=== PATIENT | male | born 1955 | race Caucasian/White ===

== ENCOUNTER 2018-11-13 20:20 | Emergency (ER) | payer OTHER ==
[~2018-11-13] VITALS: Ht 170.2 cm; Wt 88.5 kg
[2018-11-13 21:13] LABS: ABSOLUTE NEUTROPHILS 11.1 thou/uL (1.4-8.2); BASOPHILS 0.6 % (0.0-2.0); EOSINOPHILS 0.2 % (0.0-3.0); HEMATOCRIT 49.3 % (42.0-52.0); HEMOGLOBIN 17.2 gm/dL (14.0-18.0); LYMPHOCYTES 19.7 % (24.0-44.0); MCH 30.6 pg (26.0-34.0); MCHC 34.8 g/dL (28.0-37.0); MONOCYTES 7.5 % (1.0-8.0); PLATELET COUNT 424 thou/uL (150-400); RDW 12.5 % (10.5-14.5); WBC 15.4 thou/uL (4.0-11.0)
[2018-11-13 21:28] LABS: CALCIUM 9.9 mg/dL (8.5-10.1); CREATININE 1.1 mg/dL (0.7-1.3); POTASSIUM 3.7 mmol/L (3.5-5.1)
[2018-11-13 21:31] LABS: ALBUMIN 4.6 g/dL (3.4-5.0); TOTAL BILIRUBIN 0.8 mg/dL (<0.1-1.0); TOTAL PROTEIN 9.6 g/dL (6.4-8.2)
[2018-11-13] MEDS ORDERED: METHYLPHENIDATE20 M1 PO (21:32)
[2018-11-13] MEDS ORDERED: CHILDREN'S ASPI81 M1 PO (21:32)
[2018-11-13] MEDS ORDERED: WELLBUTRIN 100100 MG PO (21:33)
[2018-11-13] MEDS ORDERED: XANAX1 MG PO (21:33)
[2018-11-13] MEDS ORDERED: CELEXA40 MG PO (21:34)
[2018-11-13] MEDS ORDERED: COZAAR 25 MG TA25 M1 PO (21:34)
[2018-11-13] MEDS ORDERED: HYDROCHLOROTHIA25 M2 PO (21:35)
[2018-11-13] MEDS ORDERED: ZOCOR20 MG PO (21:35)
[2018-11-13] MEDS ORDERED: NORVASC2.5 MG PO (21:36)
[2018-11-13] MEDS ORDERED: OMEPRAZOLE 20 M20 M1 PO (21:36)
[2018-11-13] MEDS ORDERED: GLUMETZA1000 PO (21:36)
[2018-11-13] MEDS ORDERED: TOVIAZ8 MG PO (21:37)
[2018-11-13] MEDS ORDERED: AMBIEN 5 MG TABL5 M1 PO (21:37)
[2018-11-13] MEDS ORDERED: NIZORAL A-D200 ML TOP (21:38)
[2018-11-13] MEDS ORDERED: TRIAMCINOLONE A80 G2 TOP (21:38)
[2018-11-13] MEDS ORDERED: TRANSDERM-SCOP1 EACH (21:39)
[2018-11-13] MEDS ORDERED: FINASTERIDE5 MG PO (21:39)
[2018-11-13] MEDS ORDERED: AMARYL2 MG PO (21:40)
[2018-11-13] MEDS ORDERED: AMOXICILLIN 50500 MG (21:40)
[2018-11-13 22:49] LABS: URINE BILIRUBIN NEGATIVE (Negative); URINE BLOOD NEGATIVE (Negative); URINE CLARITY CLEAR; URINE COLOR YELLOW; URINE GLUCOSE-RANDOM* NEGATIVE (Negative); URINE KETONES 1+ (Negative); URINE LEUKOCYTES-REFLEX NEGATIVE (Negative); URINE NITRITE-REFLEX NEGATIVE (Negative); URINE PROTEIN (DIPSTICK) TRACE (Negative); URINE SPECIFIC GRAVITY >= 1.030 (1.005-1.035); URINE UROBILINOGEN 0.2 E.U./dl (0.2-1.0)
[2018-11-13] MEDS ORDERED: ZOFRAN ODT4 MG DISSOLVE (23:44)
[2018-11-13] MEDS ORDERED: PEPCID20 MG PO (23:44)
[2018-11-14 01:55] VITALS: BP 137/79
--- NOTE | 2018-11-14 02:53 | EKG ---
[address] [place] [address] ELECTROCARDIOGRAM REPORT Name: VALERIE SINCLAIR Room #: GIOVANNY Zelaya#: [id number] ������������������ Admission: 11/13/18 ������������������ Attend Phys: Discharge: 11/14/18 ������������������ Date of : 53 Report #: [id number] ����������������������������������������������������������������� [id number] THIS REPORT FOR: //name// [facility] ED Test Date: 2018-11-13 Test Time: 21:04:13 Pat Name: VALERIE SINCLAIR Department: Room: Gender: Sas Statistical Programmer: [place] : 1955 Requested By: Ericka Cox Order Number: [id number] MD: Mauricio Alex Measurements Intervals [place] Rate: 69 P: 65 NH: 208 QRS: 93 QRSD: 161 T: 23 QT: 474 QTc: 508 Interpretive Statements Sinus rhythm left atrial enlargement RBBB and LPFB Nonspecific ST-T wave changes No previous ECG available for comparison Electronically Signed On 11-14-2018 2:53:01 SAND [employer] by Mauricio Alex [email or web address] ��������������������������������������������� <ELECTRONICALLY SIGNED> ���������������������������������������� By: Mauricio Alex MD ��������������������������������������������� 11/14/18 0253 2104 03 Mauricio Alex MD /JENIFFER
== END 2018-11-14 01:50 | disposition home or self-care (01) ==
LOC: ER 20:20
PROVIDERS: Physician Assistant
DX: R11.2 Nausea with vomiting, unspecified (principal); R10.33 Periumbilical pain; R10.84 Generalized abdominal pain; F41.9 Anxiety disorder, unspecified; E11.9 Type 2 diabetes mellitus without complications; I10 Essential (primary) hypertension; E78.00 Pure hypercholesterolemia, unspecified; E78.5 Hyperlipidemia, unspecified; Z88.8 Allergy status to other drugs, medicaments and biological substances; Z88.0 Allergy status to penicillin; Z96.652 Presence of left artificial knee joint

== ENCOUNTER 2020-11-13 11:19 | Emergency (ER) | payer OTHER ==
[~2020-11-13] VITALS: Ht 170.2 cm; Wt 86.2 kg
--- NOTE | ~2020-11-13 | HC ---
[facility] [place] [address] CONSULTATION Name: VALERIE SINCLAIR Room #: DEP Nathalie#: [id number] Admission: 11/13/20 Attend Phys: Discharge: 11/13/20 Date of : 53 Report #: [id number] THIS REPORT FOR: cc: FAM - Family physician unknown FAM - Family physician unknown Anthony Hu MD [facility] ~ CARDIOLOGY ER CONSULT HISTORY OF PRESENT ILLNESS: A 65-year-old male who was sent over by Dr. Jina Rodriguez for evaluation of tachycardia. He apparently has been somewhat of a debilitated retired 65-year-old male. He does not have specific cardiac history and apparently had a hospitalization at [facility] for 5-6 days within the last month, but we were able to get no records from this hospitalization. He is not clear and a very poor historian on what was done or not done. He was sent over there for blood sugar in the 500-600 range. Came out on medications of metformin 1000 twice a day, methylphenidate 20, Xanax 1 mg 3 times a day, losartan 25 a day, Celexa, and hydrochlorothiazide 25 mg. He states he is on a statin, but I do not see this listed. He had a chest x-ray here, which was unremarkable, and laboratory work, which was unremarkable except for elevated sugar of 427. His tachycardia has resolved with normal saline fluid boluses. Troponin is negative. EKG has some nonspecific changes and a complete right bundle-branch block. On the medications, he is on Protonix, Ambien at night, ketaconazole, finasteride 5, glimepiride 2, Lexapro in place of the Celexa and amlodipine 2.5 mg. Laboratory work, BNP is not elevated either. Creatinine is normal. H and H is 16 and 49. Chest x-ray is normal. He has a long history of diabetes. He lives with his significant other. No syncope or presyncope. He is generally weak and just generally does not get out of bed he states, it is not clear as to why. PAST MEDICAL HISTORY: Positive for the diabetes type 2, hypertension, hypercholesterolemia, back surgeries, deepthi placement, knee surgeries, DJD, anxiety, reflux, BPH. SOCIAL HISTORY: Lives with the significant other. No children. I believe it is alternative lifestyle. No prior alcohol, none currently. No tobacco ever. FAMILY HISTORY: Negative for premature coronary artery disease. REVIEW OF SYSTEMS: Essentially negative except for stated above. ALLERGIES: GABAPENTIN, LYRICA AND PENICILLIN. PHYSICAL EXAMINATION: VITAL SIGNS: Initially was tachycardic 100-110; after 2 liters of fluid, his pulse is 75, blood pressure is 126/80. HEENT: Eyes reveal xanthelasmas. Pharynx is clear. [facility] [address] [place] [address] CONSULTATION Name: VALERIE SINCLAIR Room #: DEP ANIL Zelaya#: [id number] Admission: 11/13/20 Attend Phys: Discharge: 11/13/20 Date of : 53 Report #: [id number] NECK: Shows preserved upstrokes without JVD or bruits. LUNGS: Clear. HEART: Regular rate and rhythm, S1, S2. ABDOMEN: Soft. No HSM. No rebound or guarding. EXTREMITIES: Reveal trace of edema. Distal pulses diminished, but intact. NEUROLOGIC: Nonfocal. SKIN: Warm and dry without xanthoma or ulcer. MUSCULOSKELETAL: No gross joint deformity. I did not ambulate him. It looks like prior surgical scars on the back. ASSESSMENT: 1. Tachycardia, probably volume related due to marked elevated blood sugars. 2. Diabetes type 2 with poorly controlled blood sugar. No evidence of DKA. 3. Hypertension. 4. Hypercholesterolemia. 5. Degenerative joint disease with prior back surgery. 6. Anxiety, depression. RECOMMENDATIONS AND PLAN: I agree with the ER physician in addition IV fluids has resolved. We will talk with Dr. Rodriguez about trying to get better control on his blood sugar. I talked to him about dietary restrictions. He is not in any florid heart failure. His tachycardia has resolved with the fluids. His laboratory work is unremarkable. Echo Doppler was performed here and that is essentially normal. I have asked him for followup in our office and we will try to arrange outpatient stress testing. He is having no complaints of anginal symptoms, but certainly high risk for coronary artery disease. Coronary calcium score would also be of benefit. We will discuss the above with Dr. Rodriguez. The patient does need to take some responsibility for his medical condition here, did discuss that with him. He seems to be responsive and states he will make his appointment in 2 weeks. Thank you for asking me to assist in the care of this patient. By: [id number] 50 Anthony Hu MD, FACC /nt
[~2020-11-13 11:19] MED LIST: AMARYL2 MG PO; AMBIEN 5 MG TABL5 M1 PO; AMOXICILLIN 50500 MG; CELEXA40 MG PO; CHILDREN'S ASPI81 M1 PO; COZAAR 25 MG TA25 M1 PO; FINASTERIDE5 MG PO; GLUMETZA1000 PO; HYDROCHLOROTHIA25 M2 PO; METHYLPHENIDATE20 M1 PO; NIZORAL A-D200 ML TOP; NORVASC2.5 MG PO; OMEPRAZOLE 20 M20 M1 PO; PEPCID20 MG PO; TOVIAZ8 MG PO; TRANSDERM-SCOP1 EACH; TRIAMCINOLONE A80 G2 TOP; WELLBUTRIN 100100 MG PO; XANAX1 MG PO; ZOCOR20 MG PO; ZOFRAN ODT4 MG DISSOLVE
[2020-11-13 11:59] LABS: ABSOLUTE NEUTROPHILS 5.4 thou/uL (1.4-8.2); BASOPHILS 0.9 % (0.0-2.0); EOSINOPHILS 2.6 % (0.0-3.0); HEMATOCRIT 49.2 % (42.0-52.0); HEMOGLOBIN 16.4 gm/dL (14.0-18.0); LYMPHOCYTES 36.2 % (24.0-44.0); MCH 30.3 pg (26.0-34.0); MCHC 33.4 g/dL (28.0-37.0); MCV 90.8 fL (80.0-100.0); MONOCYTES 7.4 % (1.0-8.0); PLATELET COUNT 335 thou/uL (150-400); POLYS 52.9 % (36.0-66.0); RBC 5.42 mil/uL (4.50-6.00); RDW 12.5 % (10.5-14.5); WBC 10.2 thou/uL (4.0-11.0)
[2020-11-13] MEDS ORDERED: TAMSULOSIN HCL0.4 MG PO (12:00)
[2020-11-13 12:10] LABS: ANION GAP 11 mmol/L (7-16); BUN 9 mg/dL (7-18); CALCIUM 9.5 mg/dL (8.5-10.1); CHLORIDE 101 mmol/L (98-107); CO2 22 mmol/L (21-32); CREATININE 1.2 mg/dL (0.7-1.3); GLUCOSE 427 mg/dL (74-106); POTASSIUM 3.8 mmol/L (3.5-5.1); SODIUM 134 mmol/L (136-145)
[2020-11-13 12:20] LABS: ALBUMIN 3.5 g/dL (3.4-5.0); SGOT 27 U/L (15-37); SGPT 35 U/L (30-65); TOTAL BILIRUBIN 0.6 mg/dL (0.2-1.0); TOTAL PROTEIN 7.3 g/dL (6.4-8.2); TROPONIN-I <0.06 ng/mL (<0.06)
[2020-11-13 12:21] LABS: URINE BILIRUBIN NEGATIVE (Negative); URINE BLOOD NEGATIVE (Negative); URINE CLARITY CLEAR; URINE COLOR YELLOW; URINE GLUCOSE-RANDOM* 3+ (Negative); URINE KETONES 1+ (Negative); URINE LEUKOCYTES-REFLEX NEGATIVE (Negative); URINE NITRITE-REFLEX NEGATIVE (Negative); URINE PROTEIN (DIPSTICK) NEGATIVE (Negative)
--- NOTE | 2020-11-13 14:38 | 2DMMODE ---
[facility] [place] [address] 2 D/M-MODE ECHOCARDIOGRAM Name: VALERIE SINCLAIR Room #: REG Nathalie#: [id number] Admission: 11/13/20 Attend Phys: Discharge: Date of : 53 Report #: [id number] THIS REPORT FOR: cc: FAM - Family physician unknown FAM - Family physician unknown Anthony Hu MD [facility] ~ APPROVED REPORT Study performed: 11/13/2020 13:11:40 EXAM: Comprehensive 2D, Doppler, and color-flow Echocardiogram Patient Location: ER Room #: 10 Status: routine BSA: 1.98 HR: 86 bpm BP: 130/81 mmHg Rhythm: Tachycardia Other Information Study Quality: Adequate Indications Diabetes Dyspnea Tachycardia Hypertension/HDD 2D Dimensions RVDd: 38.14 mm IVSd: 10.84 (7-11mm) LVOT Diam: 23.70 (18-24mm) LVDd: 52.10 mm PWd: 9.69 (7-11mm) LVDs: 35.68 (25-40mm) Aortic Root: 35.47 mm IVC: 14.00 mm Volumes Left Atrial Volume (Systole) Single Plane 4CH: 35.94 mL Single Plane 2CH: 30.04 mL LA ESV Index: 18.00 mL/m2 Aortic Valve AoV Peak Ghassan.: 0.90 m/s AO Peak Gr.: 3.21 mmHg LVOT Max P.61 mmHg [facility] [address] [address] 2 D/M-MODE ECHOCARDIOGRAM Name: VALERIE SINCLAIR Room #: REG Danielito.#: [id number] Admission: 11/13/20 Attend Phys: Discharge: Date of : 53 Report #: [id number] LVOT Max V: 0.95 m/s RANJITH Vmax: 4.68 cm2 Mitral Valve E/A Ratio: 0.7 MV Decel. Time: 131.95 ms MV E Max Ghassan.: 0.68 m/s MV A Ghassan.: 0.99 m/s MV PHT: 38.26 ms Left Ventricle The left ventricle is normal size. There is normal LV segmental wall motion. There is normal left ventricular wall thickness. The left ventricular systolic function is normal. The left ventricular ejection fraction is within the normal range. LVEF is within normal limits.55% Grade I - abnormal relaxation pattern. Right Ventricle The right ventricle is normal size. The right ventricular systolic function is normal. Atria The left atrium size is normal. The right atrium size is normal. Aortic Valve The aortic valve is normal in structure. No aortic regurgitation is present. There is no aortic valvular stenosis. Mitral Valve The mitral valve is normal in structure. Trace to mild mitral regurgitation. No evidence of mitral valve stenosis. Tricuspid Valve The tricuspid valve is normal in structure. There is no tricuspid valve regurgitation noted. Pulmonic Valve The pulmonary valve is normal in structure. There is no pulmonic valvular regurgitation. Great Vessels The aortic root is normal in size. IVC is normal in size and collapses >50% with inspiration. Pericardium [facility] [address] [address] 2 D/M-MODE ECHOCARDIOGRAM Name: VALERIE SINCLAIR Room #: REG ANIL DanielitoNaomie#: [id number] Admission: 11/13/20 Attend Phys: Discharge: Date of : 53 Report #: [id number] There is no pericardial effusion. <Conclusion> The left ventricle is normal size. LVEF is within normal limits.55% Grade I - abnormal relaxation pattern. The right ventricle is normal size. The left atrium size is normal. The aortic valve is normal in structure. Trace to mild mitral regurgitation. There is no tricuspid valve regurgitation noted. The aortic root is normal in size. There is no pericardial effusion. <ELECTRONICALLY SIGNED> By: Anthony Hu MD, FACC 11/13/20 1438 1438 143 Anthony Hu MD, FACC /INF
[2020-11-13] MEDS ORDERED: LEXAPRO5 MG PO (15:48)
[2020-11-13 16:44] VITALS: BP 128/72
--- NOTE | 2020-11-14 07:03 | EKG ---
[address] [address] [facility] [place] [address] ELECTROCARDIOGRAM REPORT Name: VALERIE SINCLAIR Room #: DEP ANIL Zelaya#: [id number] Admission: 11/13/20 Attend Phys: Discharge: 11/13/20 Date of : 53 Report #: [id number] [facility] ED Test Date: 2020-11-13 Test Time: 11:25:27 Pat Name: VALERIE SINCLAIR Department: Room: Gender: M Pattern Marker: TOSHIA : 1955 Requested By: Judy Hoyt Order Number: [id number] MD: Anthony Rose Measurements Intervals [place] Rate: 111 P: 56 ID: [id number] QRS: -166 QRSD: 153 T: -15 QT: 371 QTc: 504 Interpretive Statements Sinus tachycardia RBBB and LPFB Compared to ECG 11/13/2018 21:04:13 Sinus rhythm no longer present Atrial abnormality no longer present ST (T wave) deviation no longer present Electronically Signed On 11-14-2020 7:02:53 [employer] by Anthony Rose [email or web address] <ELECTRONICALLY SIGNED> By: Anthony Rose MD, [facility] 11/14/20701 D: 02/1124 24 Anthony Rose MD, FACC /EPI
== END 2020-11-13 16:44 | disposition home or self-care (01) ==
LOC: ER 11:19
PROVIDERS: Emergency Medicine
DX: R00.0 Tachycardia, unspecified (principal); E86.0 Dehydration; E11.65 Type 2 diabetes mellitus with hyperglycemia; I10 Essential (primary) hypertension; E78.5 Hyperlipidemia, unspecified; Z79.899 Other long term (current) drug therapy; Z88.0 Allergy status to penicillin; Z88.8 Allergy status to other drugs, medicaments and biological substances

== ENCOUNTER → 2020-11-29 | Outpatient (CLI) | payer OTHER ==
[~2020-11-29] MED LIST changes: +LEXAPRO5 MG PO; +TAMSULOSIN HCL0.4 MG PO
== END ==
LOC: SJCVC 10:53
PROVIDERS: ATTEND Nurse Practitioner
DX: R94.31 Abnormal electrocardiogram [ECG] [EKG] (principal); R00.0 Tachycardia, unspecified; I45.10 Unspecified right bundle-branch block; I10 Essential (primary) hypertension; E78.5 Hyperlipidemia, unspecified; E11.9 Type 2 diabetes mellitus without complications; I48.0 Paroxysmal atrial fibrillation; R53.81 Other malaise; R06.00 Dyspnea, unspecified; K21.9 Gastro-esophageal reflux disease without esophagitis; G89.4 Chronic pain syndrome; N40.0 Benign prostatic hyperplasia without lower urinary tract symptoms; Z98.890 Other specified postprocedural states; Z88.0 Allergy status to penicillin; Z88.8 Allergy status to other drugs, medicaments and biological substances; Z79.01 Long term (current) use of anticoagulants; Z79.84 Long term (current) use of oral hypoglycemic drugs; Z79.82 Long term (current) use of aspirin; Z79.899 Other long term (current) drug therapy

== ENCOUNTER → 2020-12-19 | Outpatient (CLI) | payer OTHER | LOC: SJCVCIMAG 09:05 | PROVIDERS: ATTEND Internal Medicine Cardiovascular Disease | DX: I49.3 Ventricular premature depolarization (principal); R00.0 Tachycardia, unspecified; I45.10 Unspecified right bundle-branch block; R07.89 Other chest pain; I48.91 Unspecified atrial fibrillation; R53.83 Other fatigue; R06.00 Dyspnea, unspecified; E78.5 Hyperlipidemia, unspecified; I10 Essential (primary) hypertension; E11.9 Type 2 diabetes mellitus without complications; R51.9 Headache, unspecified; Z79.899 Other long term (current) drug therapy; Z88.2 Allergy status to sulfonamides ==

== ENCOUNTER → 2021-05-23 | Outpatient (CLI) | payer OTHER | LOC: SJCVC 14:58 | PROVIDERS: ATTEND Internal Medicine Cardiovascular Disease | DX: R94.31 Abnormal electrocardiogram [ECG] [EKG] (principal); I45.2 Bifascicular block; R00.0 Tachycardia, unspecified; I10 Essential (primary) hypertension; E78.5 Hyperlipidemia, unspecified; E11.9 Type 2 diabetes mellitus without complications; R53.83 Other fatigue; R06.00 Dyspnea, unspecified; K21.9 Gastro-esophageal reflux disease without esophagitis; N40.0 Benign prostatic hyperplasia without lower urinary tract symptoms; F90.9 Attention-deficit hyperactivity disorder, unspecified type; E78.00 Pure hypercholesterolemia, unspecified; Z72.89 Other problems related to lifestyle; Z79.84 Long term (current) use of oral hypoglycemic drugs; Z79.899 Other long term (current) drug therapy; Z88.0 Allergy status to penicillin; Z88.8 Allergy status to other drugs, medicaments and biological substances ==